=== PATIENT | male | born 1985 | race African-American/Black ===

== ENCOUNTER 2025-07-19 14:19 | Emergency (ER) | payer SELFPAY ==
[~2025-07-19] VITALS: Ht 182.9 cm; Wt 80.0 kg
[2025-07-19 14:26] VITALS: O2SAT 96
[2025-07-19 14:44] VITALS: BP 137/94; PULSE 92; RESP 16; TEMP 37.1; O2SAT 96
== END 2025-07-19 15:57 | disposition left against medical advice (07) ==
LOC: ER 14:19
DX: S01.81XA Laceration without foreign body of other part of head, initial encounter (principal); Y04.0XXA Assault by unarmed brawl or fight, initial encounter; Y93.89 Activity, other specified; Y92.89 Other specified places as the place of occurrence of the external cause; Y99.8 Other external cause status
CPT/HCPCS: 99283; Z7610